=== PATIENT | male | born 1970 | race African-American/Black ===

== ENCOUNTER 2019-11-28 02:11 | Emergency (ER) | payer OTHER ==
[~2019-11-28] VITALS: Ht 167.6 cm; Wt 68.0 kg
[2019-11-28] MEDS ORDERED: MORPHINE SULFATE 4 MG/ML CPJ (NOT FOR IM USE) IV ONE (02:45)
[2019-11-28] MEDS ORDERED: ONDANSETRON HCL 4MG/2ML INJ IV ONE (02:45)
[2019-11-28 03:29] VITALS: BP 136/83
== END 2019-11-28 03:31 | disposition home or self-care (01) ==
LOC: ER 02:11
DX: S43.084A Other dislocation of right shoulder joint, initial encounter (principal); W18.39XA Other fall on same level, initial encounter; Y93.89 Activity, other specified; Y92.89 Other specified places as the place of occurrence of the external cause; Y99.8 Other external cause status
CPT/HCPCS: 23650; 73030; 93005; 96374; 96375; 99284; J2270; J2405